=== PATIENT | female | born 1990 | race Caucasian/White ===

== ENCOUNTER 2016-04-26 10:30 | Emergency (ER) | payer MEDICAID ==
[2016-04-26 10:42] VITALS: BP 113/63; PULSE 94; RESP 16; TEMP 98.4; O2SAT 97
--- NOTE | 2016-04-26 11:23 | UCPHY ---
H & P Time Seen by Provider: 04/26/16 10:55 Patient Type: Established HPI/ROS: This patient complains of right wrist pain of 4 days duration is been increasing in intensity. 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 Rather, the pain came on gradually. She had a similar episode a few years back and saw a chiropractor who put a carpal bone back in place. She said thereafter she felt improved. This time the chiropractor did not think he can be of assistance and she came here for further evaluation. She states the pain is mild at baseline moderate with flexion of her wrist. She notes no other associated symptoms. ROS: Musculoskeletal: No swelling or discoloration to the wrist. Neuro: No numbness or weakness. No tingling up the arm. 5 point ROS is otherwise negative. 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 General: No acute distress Eyes: Pupils equal and react to light. Extraocular motions are intact. Lungs: No respiratory distress. Cardiac: Brisk capillary refill is intact throughout. Pulses are 2+ and symmetric in the affected extremity. Skin: No rash or pallor. Extremities: Atraumatic and normal except for right wrist Right wrist: Patient has mild to moderate tenderness to the dorsum of the wrist without swelling. She maintains good range of motion. Phalen's test is negative. Tinel's test is negative. There is no anatomical snuffbox tenderness or volar tenderness. No forearm tenderness. Neuro: Alert and oriented x3 with no sensorimotor deficits. Initial differential diagnosis: Wrist strain or occult sprain, prior injury with exacerbation, rule out bony abnormality Constitutional: Initial Vital Signs Temperature (C) 36.9 C 04/26/16 10:40 Heart Rate 94 04/26/16 10:40 Respiratory Rate 16 04/26/16 10:40 Blood Pressure 113/63 04/26/16 10:40 O2 Sat (%) 97 04/26/16 10:40 O2 Delivery Mode Room Air Allergies/Adverse Reactions: No Known Allergies Allergy (Verified 04/26/16 10:39) Home Medications: Medication Instructions Recorded NK [No Known Home Meds] 06/14/14 MDM/Departure - MDM Diagnostics: Wrist x-ray was read by the radiologist and reviewed by myself with scapholunate dissociation. Otherwise normal ED Course/Re-evaluation: Discussion: This patient may have had a prior wrist injury with ligament disruption causing the scapholunate dissociation. I counseled regarding this. No fracture or other bony abnormalities and no remarkable findings on exam other than the mild tenderness. She is placed in a Velcro wrist splint by our tech. She will take NSAIDs due gentle stretches, rest and splint with plan to follow up with hand surgeon for any ongoing symptoms despite the treatment plan - Depart Disposition: Home, Routine, Self-Care Clinical Impression: Wrist pain, acute Qualifiers: Laterality: right Qualified Code(s): M25.531 - Pain in right wrist Condition: Good Instructions: Wrist Sprain (ED) Additional Instructions: Diagnosis: Wrist pain Your x-ray as a finding that usually occurs from a wrist sprain-to the bones further part than usual. Plan: Wear the Velcro wrist splint whenever your active Ibuprofen for discomfort or similar anti-inflammatory Call Dr. haines-orthopedic surgeon to arrange follow-up appointment for further evaluation. Stand Alone Forms: Work Excuse Referrals: NONE *PRIMARY CARE P,. [Primary Care Provider] - As per Instructions Zion Haines MD [Medical Doctor] - As per Instructions - PQRS PQRS Measurement: NA
== END 2016-04-26 11:39 | disposition home or self-care (01) ==
LOC: CED 10:30
DX: M25.531 Pain in right wrist (principal); F17.200 Nicotine dependence, unspecified, uncomplicated
CPT/HCPCS: 73110-PO; 99214-PO; G0463-PO; L3908

== ENCOUNTER 2016-05-22 09:35 | Emergency (ER) | payer MEDICAID ==
[2016-05-22] MEDS ORDERED: NS 1,000 ML IV ONE (09:53)
--- NOTE | 2016-05-22 09:57 | EDPHY ---
H & P Time Seen by Provider: 05/22/16 09:41 HPI/ROS: CHIEF COMPLAINT: Right-sided abdominal pain HISTORY OF PRESENT ILLNESS: Patient started her menstrual period a week ago and started having right-sided abdominal pain this week on Monday. She describes it from her ribs to her hip bone on the right side which was better in the morning and then worse in the evening. Not associated with change when she eats or drinks anything. No vomiting or diarrhea. No urinary symptoms. No vaginal discharge. No history of fall injury or trauma. Last night it was worse and located in the right side of her abdomen. Radiated both up to her ribs and down toward her pelvis. Not better worse with position. A little bit worse with a deep breath. REVIEW OF SYSTEMS: Eye: no change in vision ENT: Mild sore throat Cardiac: no chest pain or syncope Pulmonary: no cough or SOB Abdomen: HPI Musculoskeletal: no back pain or leg pain or leg swelling Skin: no rash Neuro: no headache Constitutional: no fever : no urinary symptoms A comprehensive 10 point review of systems is otherwise negative aside from elements mentioned in the history of present illness. PAST MEDICAL HISTORY: Tonsillectomy. No history of PE or DVT. No medications. Social history: Smoker, alcohol last night but not daily. No recent travel or immobilization or surgery. No family history of venous thromboembolism. General Appearance: Alert and conversant, cooperative. Eyes: No scleral icterus. ENT, Mouth: Normal mucous membranes. No pharyngeal erythema or exudate, no trismus. Respiratory: Normal respiratory effort, breath sounds equal, lungs are clear to auscultation. Full sentences. Cardiovascular: Regular rate and rhythm. Gastrointestinal: No Thomason sign. Mild right lower abdominal tenderness without rebound or guarding. Bowel sounds present. No hernia. Neurological: Alert and oriented x3. Normally conversant. Face symmetric, normal movement and sensation in all extremities. Skin: Warm and dry, no rashes. Musculoskeletal: No peripheral edema and no joint swelling. No calf tenderness or swelling. Psychiatric: Not agitated. Emergency Department course/MDM: Patient declined pain medication. IV normal saline ordered because she has an empty bladder and urine sample requested, would like to keep her NPO until evaluation is complete. CBC, chemistry, lipase and LFTs, ultrasound of the right lower quadrant. Lack of right upper quadrant tenderness and no change with oral intake, if liver function tests are normal I think gallstones are less likely. PERC negative, very low suspicion for pulmonary embolism. 1150: Results discussed in detail with the patient, most likely ruptured ovarian cyst, declined pain medication on discharge. Smoking Status: Current every day smoker Constitutional: Initial Vital Signs Temperature (C) 36.7 C 05/22/16 09:37 Heart Rate 89 05/22/16 09:37 Respiratory Rate 18 05/22/16 09:37 Blood Pressure 119/85 H 05/22/16 09:37 O2 Sat (%) 95 05/22/16 09:37 O2 Delivery Mode Room Air Allergies/Adverse Reactions: No Known Allergies Allergy (Verified 05/22/16 09:37) Home Medications: Medication Instructions Recorded NK [No Known Home Meds] 06/14/14 Medical Decision Making - Diagnostics Imaging: Ultrasound at 11:[address] Herr shows a appendix not visualized but otherwise normal right lower quadrant, multiple follicular cysts in the right ovary with small free fluid in the pelvis suggesting recent ovarian cyst rupture, otherwise negative. Differential Diagnosis: Differential considered including but not limited to appendicitis, ovarian cyst or torsion, cholecystitis or cholelithiasis, pancreatitis, renal colic - Data Points Laboratory Results: Laboratory Results 05/22/16 10:05 05/22/16 10:05 05/22/16 05/22/16 05/22/16 10:59 10:05 10:05 WBC RBC Hgb Hct MCV MCH MCHC RDW Plt Count MPV Neut % (Auto) Lymph % (Auto) [place] % (Auto) Eos % (Auto) Baso % (Auto) Nucleat RBC Rel Count Absolute Neuts (auto) Absolute Lymphs (auto) Absolute Monos (auto) Absolute Eos (auto) Absolute Basos (auto) Absolute Nucleated RBC Immature Gran % Immature Gran # Sodium 142 mEq/L mEq/L (134-144) Potassium 4.0 mEq/L mEq/L (3.5-5.2) Chloride 106 mEq/L mEq/L (97-110) Carbon Dioxide 25 mEq/l mEq/l (22-31) Anion Gap 11 mEq/L mEq/L (8-16) BUN 10 mg/dL mg/dL (7-23) Creatinine 0.7 mg/dL mg/dL (0.6-1.0) Estimated GFR > 60 Glucose 97 mg/dL mg/dL (70-100) Calcium 9.5 mg/dL mg/dL (8.5-10.4) Total Bilirubin 0.8 mg/dL mg/dL (0.1-1.4) Conjugated Bilirubin 0.3 mg/dL mg/dL (0.0-0.5) Unconjugated Bilirubin 0.5 mg/dL mg/dL (0.0-1.1) AST 23 IU/L IU/L (14-46) ALT 37 IU/L IU/L (9-52) Alkaline Phosphatase 98 IU/L IU/L (38-126) Total Protein 7.3 g/dL g/dL (6.3-8.2) Albumin 4.4 g/dL g/dL (3.5-5.0) Lipase 75.0 IU/L IU/L (23-300) Beta HCG, Qual NEGATIVE Urine Color YELLOW Urine Appearance CLEAR Urine pH 8.0 H (5.0-7.5) Ur Specific [place] 1.008 (1.002-1.030) Urine Protein NEGATIVE (NEGATIVE) Urine Ketones NEGATIVE (NEGATIVE) Urine Blood NEGATIVE (NEGATIVE) Urine Nitrate NEGATIVE (NEGATIVE) Urine Bilirubin NEGATIVE (NEGATIVE) Urine Urobilinogen NEGATIVE EU EU (0.2-1.0) Ur Leukocyte Esterase NEGATIVE (NEGATIVE) Urine Glucose NEGATIVE (NEGATIVE) 05/22/16 10:05 WBC 11.02 10^3/uL H 10^3/uL (3.80-9.50) RBC 4.64 10^6/uL 10^6/uL (4.18-5.33) Hgb 15.0 g/dL g/dL (12.6-16.3) Hct 42.9 % % (38.0-47.0) MCV 92.5 fL fL (81.5-99.8) MCH 32.3 pg pg (27.9-34.1) MCHC 35.0 g/dL g/dL (32.4-36.7) RDW 12.0 % % (11.5-15.2) Plt Count 182 10^3/uL 10^3/uL (150-400) MPV 10.9 fL fL (8.7-11.7) Neut % (Auto) 77.5 % H % (39.3-74.2) Lymph % (Auto) 13.6 % L % (15.0-45.0) [place] % (Auto) 7.4 % % (4.5-13.0) Eos % (Auto) 0.8 % % (0.6-7.6) Baso % (Auto) 0.2 % L % (0.3-1.7) Nucleat RBC Rel Count 0.0 % % (0.0-0.2) Absolute Neuts (auto) 8.54 10^3/uL H 10^3/uL (1.70-6.50) Absolute Lymphs (auto) 1.50 10^3/uL 10^3/uL (1.00-3.00) Absolute Monos (auto) 0.82 10^3/uL H 10^3/uL (0.30-0.80) Absolute Eos (auto) 0.09 10^3/uL 10^3/uL (0.03-0.40) Absolute Basos (auto) 0.02 10^3/uL 10^3/uL (0.02-0.10) Absolute Nucleated RBC 0.00 10^3/uL 10^3/uL (0-0.01) Immature Gran % 0.5 % % (0.0-1.1) Immature Gran # 0.05 10^3/uL 10^3/uL (0.00-0.10) Sodium Potassium Chloride Carbon Dioxide Anion Gap BUN Creatinine Estimated GFR Glucose Calcium Total Bilirubin Conjugated Bilirubin Unconjugated Bilirubin AST ALT Alkaline Phosphatase Total Protein Albumin Lipase Beta HCG, Qual Urine Color Urine Appearance Urine pH Ur Specific [place] Urine Protein Urine Ketones Urine Blood Urine Nitrate Urine Bilirubin Urine Urobilinogen Ur Leukocyte Esterase Urine Glucose Medications Given: Discontinued Medications Sodium Chloride (Ns) 1,000 mls @ 0 mls/hr IV ONCE ONE PRN Reason: Wide Open Stop: 05/22/16 09:54 Last Admin: 05/22/16 10:08 Dose: 1,000 mls Departure - Departure Disposition: Home, Routine, Self-Care Clinical Impression: Ovarian cyst Qualifiers: Laterality: right Qualified Code(s): N83.201 - Unspecified ovarian cyst, right side Condition: Good Instructions: Ovarian Cyst (ED) Additional Instructions: Oral ibuprofen 600 mg every 6-8 hours for the next 72 hours. Please return for re-evaluation if you get fever, vomiting, worsening or severe pain. Referrals: Natalie Issa, [Doctor of Osteopathy] - 2-3 days, if not improved
[2016-05-22 10:17] LABS: % IMMATURE GRANULYOCYTES 0.5 % (0.0-1.1); ABSOLUTE IMMATURE GRANULOCYTES 0.05 10^3/uL (0.00-0.10); ADD DIFF? NO; ADD MORPH? NO; ADD SCAN? NO; ATYPICAL LYMPHOCYTE FLAG 0 (0-99); FRAGMENT RBC FLAG 0 (0-99); HEMATOCRIT 42.9 % (38.0-47.0); LEFT SHIFT FLG 0 (0-99); LIPEMIA HEMOLYSIS FLAG 90 (0-99); MEAN CELL HEMOGLOBIN 32.3 pg (27.9-34.1); MEAN CELL VOLUME 92.5 fL (81.5-99.8); MEAN PLATELET VOLUME 10.9 fL (8.7-11.7); PLATELET CLUMPS FLAG 30 (0-99); PLATELET COUNT 182 10^3/uL (150-400); RED BLOOD CELL COUNT 4.64 10^6/uL (4.18-5.33)
[2016-05-22 10:32] LABS: ALANINE AMINOTRANSFERASE 37 IU/L (9-52); ALBUMIN 4.4 g/dL (3.5-5.0); ALKALINE PHOSPHATASE 98 IU/L (38-126); ANION GAP 11 mEq/L (8-16); ASPARTATE AMINOTRANSFERASE 23 IU/L (14-46); BILIRUBIN,TOTAL 0.8 mg/dL (0.1-1.4); BILIRUBIN-CONJUGATED 0.3 mg/dL (0.0-0.5); BILIRUBIN-UNCONJUGATED 0.5 mg/dL (0.0-1.1); CALCIUM 9.5 mg/dL (8.5-10.4); CARBON DIOXIDE 25 mEq/l (22-31); CHLORIDE 106 mEq/L (97-110); CREATININE 0.7 mg/dL (0.6-1.0); GLOMERULAR FILTRATION RATE > 60; GLUCOSE 97 mg/dL (70-100); SODIUM 142 mEq/L (134-144); TOTAL PROTEIN 7.3 g/dL (6.3-8.2)
[2016-05-22 11:08] LABS: COLOR YELLOW; LEUKOCYTE ESTERASE,URINE NEGATIVE (NEGATIVE); NITRITE,URINE NEGATIVE (NEGATIVE)
[2016-05-22 11:29] VITALS: RESP 16
[2016-05-22 12:08] VITALS: BP 102/70; PULSE 68; TEMP 96.8; O2SAT 98
== END 2016-05-22 12:08 | disposition home or self-care (01) ==
DX: N83.201 Unspecified ovarian cyst, right side (principal); F17.200 Nicotine dependence, unspecified, uncomplicated

== ENCOUNTER 2016-08-16 16:34 | Emergency (ER) | payer OTHER, MEDICAID ==
[2016-08-16 16:44] VITALS: BP 102/72; PULSE 100; RESP 18; TEMP 98.8; O2SAT 95
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
[2016-08-16] MEDS ORDERED: IBUPROFEN 600 MG TAB PO ONE (16:56)
== END 2016-08-16 17:14 | disposition home or self-care (01) ==
LOC: CED 16:34
DX: S63.501A Unspecified sprain of right wrist, initial encounter (principal); F17.200 Nicotine dependence, unspecified, uncomplicated; X50.0XXA Overexertion from strenuous movement or load, initial encounter; Y92.69 Other specified industrial and construction area as the place of occurrence of the external cause; Y99.0 Civilian activity done for income or pay; Y93.89 Activity, other specified
CPT/HCPCS: 73110-PO; L3908

== ENCOUNTER 2017-01-18 08:56 | Emergency (ER) | payer MEDICAID ==
[2017-01-18 09:11] VITALS: PULSE 93; RESP 16; TEMP 98.2; O2SAT 97
[2017-01-18] MEDS ORDERED: IBUPROFEN 600 MG TAB PO ONE ×2 (09:12)
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
[2017-01-18 09:32] VITALS: BP 124/78
== END 2017-01-18 09:34 | disposition home or self-care (01) ==
LOC: CED 08:56
DX: S16.1XXA Strain of muscle, fascia and tendon at neck level, initial encounter (principal); F17.200 Nicotine dependence, unspecified, uncomplicated; V49.50XA Passenger injured in collision with unspecified motor vehicles in traffic accident, initial encounter; Y92.410 Unspecified street and highway as the place of occurrence of the external cause

== ENCOUNTER 2017-08-15 20:02 | Emergency (ER) | payer MEDICAID ==
--- NOTE | 2017-08-15 20:33 | EDPHY ---
H & P Smoking Status: Current every day smoker Time Seen by Provider: 08/15/17 20:15 HPI/ROS: CHIEF COMPLAINT: Abdominal pain HISTORY OF PRESENT ILLNESS: 27-year-old female with a history of ovarian cysts here with right-sided abdominal pain for the last 24 hr. She reports similar pain previously with ovarian cyst. She denies any fevers, chills, vomiting, diarrhea, dysuria. Addition she denies , vaginal discharge, history of STDs. She reports normal appetite but does feel nauseous today. She has no surgical history of the abdomen. REVIEW OF SYSTEMS: Constitutional: No fever, no chills. Eyes: No discharge. ENT: No sore throat. Cardiovascular: No chest pain, no palpitations. Respiratory: No cough, no shortness of breath. Gastrointestinal: + abdominal pain, no vomiting. Genitourinary: No hematuria. Musculoskeletal: No back pain. Skin: No rashes. Neurological: No headache. (Goyo Macias) Past Medical/Surgical History: Ovarian cyst (Shruthi Steen) Social History: no recent alcohol (Shruthi Steen) Physical Exam: General Appearance: Alert and no distress. Eyes: Pupils equal and round no injection. Respiratory: Chest is nontender, lungs are clear to auscultation. Cardiac: regular rate and rhythm. Gastrointestinal: Abdomen is soft and mild tenderness with no peritoneal signs to right lower quadrant and right adnexa, no masses, bowel sounds normal. Musculoskeletal: Neck is supple and nontender. Extremities have full range of motion and are nontender. Skin: No rashes or lesions. (Goyo Macias) Constitutional: Initial Vital Signs Temperature (C) 36.9 C 08/15/17 20:05 Heart Rate 85 08/15/17 20:05 Respiratory Rate 20 08/15/17 20:05 Blood Pressure 124/73 H 08/15/17 20:05 O2 Sat (%) 97 08/15/17 20:05 O2 Delivery Mode Room Air Allergies/Adverse Reactions: beeswax Allergy (Verified 08/15/17 20:08) bees Allergy (Uncoded 08/15/17 20:08) Home Medications: Medication Instructions Recorded NK [No Known Home Meds] 06/14/14 Medical Decision Making ED Course/Re-evaluation: I saw and examined this patient. On exam, abdomen is soft, suprapubic and right pelvic tenderness, no peritoneal signs. I agree with the initial assessment and plan. (Shruthi Steen) Differential Diagnosis: Appendicitis, cholecystitis, UTI, pyelonephritis, tubo-ovarian abscess, ovarian cyst, (Goyo Macias) Other Provider: I assumed care of this patient at 9:30 p.m.. I reviewed the results of the ultrasound and relayed them to the patient. She continues to decline pain medication. On examination her abdomen is soft and nontender. She is comfortable returning home. She does not have a local physician and I am giving her a referral to the OBGYN accessioner. (Analilia Cramer) - Data Points Laboratory Results: Laboratory Results 08/15/17 20:30 08/15/17 20:30 Departure - Departure Disposition: Home, Routine, Self-Care Clinical Impression: Abdominal pain Condition: Good Instructions: Pelvic Pain in Women (ED) Additional Instructions: Ibuprofen 600 mg 3 times daily while the pain persists. Referrals: Luz De Los Santos DO [Doctor of Osteopathy] - As per Instructions
[2017-08-15 20:56] LABS: PLATELET COUNT 193 10^3/uL (150-400)
[2017-08-15 22:24] VITALS: BP 103/73
== END 2017-08-15 22:24 | disposition home or self-care (01) ==
DX: R10.31 Right lower quadrant pain (principal); F17.200 Nicotine dependence, unspecified, uncomplicated

== ENCOUNTER 2018-01-28 12:39 | Emergency (ER) | payer MEDICAID ==
[2018-01-28 12:49] VITALS: BP 120/78
--- NOTE | 2018-01-28 12:58 | EDPHY ---
H & P Stated Complaint: right wrist pain sp splitting firewood, monday . hx of same Time Seen by Provider: 01/28/18 12:47 HPI/ROS: Chief Complaint: Wrist pain HPI: 27-year-old presenting with pain in her right wrist and forearm worsening for the last 2 days. Patient states this started when she was chopping firewood for 2 hr on Monday. 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 She had a similar injury in the past was told that she had a stress fracture in her wrist. She has not had any direct blows or injuries. No falls. ROS: 10 systems were reviewed and were negative except those elements noted in the HPI. PMH: Denies Social History: No smoking, no alcohol, no recreational drug use Family History: non-contributory Physical Exam: General: Awake, alert, no acute distress Right elbow: Nontender, full range of motion without pain. Right wrist: Patient has no bony tenderness. She is complaining of some discomfort in her right flexors on the ulnar aspect of her wrist but no point tenderness. She is able to flex with normal strength. Sensations intact in the radial, median, and ulnar nerve distribution. She has some discomfort with supination. Capillary refills less than 2 sec. Normal radial and ulnar pulses. Hand, no tenderness. Skin: No rash - Personal History LMP (Females 10-55): 22-28 Days Ago Current Tetanus/Diphtheria Vaccine: Unsure Current Tetanus Diphtheria and Acellular Pertussis (TDAP): Unsure - Medical/Surgical History Hx Asthma: No Hx Chronic Respiratory Disease: No Hx Diabetes: No Hx Cardiac Disease: No Hx Renal Disease: No Hx Cirrhosis: No Hx Alcoholism: No Hx HIV/AIDS: No Hx Splenectomy or Spleen Trauma: No Other PMH: ovarian cyst - Social History Smoking Status: Heavy smoker Constitutional: Initial Vital Signs Temperature (C) 37.1 C 01/28/18 12:43 Heart Rate 87 01/28/18 12:43 Respiratory Rate 16 01/28/18 12:43 Blood Pressure 120/78 01/28/18 12:43 O2 Sat (%) 93 01/28/18 12:43 Allergies/Adverse Reactions: bees Allergy (Uncoded 01/28/18 12:49) Home Medications: Medication Instructions Recorded NK [No Known Home Meds] 06/14/14 Medical Decision Making - Diagnostics Imaging Results: Imaging Impressions Wrist X-Ray 01/28/18 12:50 Impression: Negative. No acute fracture. ED Course/Re-evaluation: 27-year-old with wrist pain consistent with his tendinitis. X-rays negative. Will discharge with supportive therapy and outpatient follow-up. Departure - Departure Disposition: Home, Routine, Self-Care Clinical Impression: Tendinitis Condition: Good Instructions: Tendinitis (ED) Additional Instructions: Take ibuprofen, 600 mg every 8 hr. You may alternate with acetaminophen, 1000 mg every 8 hr. May apply ice for 15 min of every hour while awake. You may wear the splint as needed for comfort. Follow up with primary care physician in 3-4 days for further evaluation. Referrals: Drew Deutsch MD [[facility] [place] Provider] - As per Instructions
== END 2018-01-28 14:05 | disposition home or self-care (01) ==
LOC: CED 12:39
DX: M77.8 Other enthesopathies, not elsewhere classified (principal)
CPT/HCPCS: 73110-PO; L3908

== ENCOUNTER 2018-05-19 17:45 | Emergency (ER) | payer MEDICAID ==
[2018-05-19 17:51] VITALS: BP 129/81
--- NOTE | 2018-05-19 18:15 | EDPHY ---
H & P Stated Complaint: snowboarding fall, helmeted, -loc Time Seen by Provider: 05/19/18 17:56 HPI/ROS: Chief complaint: Head injury History of present illness: This is an otherwise healthy 27-year-old female who presents to the emergency department for head injury. [place] a [place] approximately 1-2 body heights high and landed in the snow. She landed hard and struck her head. She did not lose consciousness but felt dazed. She did become nauseous. Since then she has developed a headache on both sides of her head. She has persistent nausea but no vomiting. She also reports neck discomfort. She was helmeted. Again no loss of consciousness. She denies trauma to the rest of the body including the back, chest, abdomen, pelvis or extremities. No paresthesias. No weakness or paralysis. No bowel or bladder dysfunction. Review of systems: A 10 point review of systems was obtained and other than described above was negative. - Personal History LMP (Females 10-55): 8-14 Days Ago Current Tetanus/Diphtheria Vaccine: Unsure Current Tetanus Diphtheria and Acellular Pertussis (TDAP): Unsure - Medical/Surgical History Hx Asthma: No Hx Chronic Respiratory Disease: No Hx Diabetes: No Hx Cardiac Disease: No Hx Renal Disease: No Hx Cirrhosis: No Hx Alcoholism: No Hx HIV/AIDS: No Hx Splenectomy or Spleen Trauma: No Other PMH: ovarian cyst, - Social History Smoking Status: Heavy smoker - Physical Exam Exam: General Appearance: Alert, nontoxic Eyes: PERRLA. EOM intact. No raccoon eyes. ENT: No hemotympanum, no chavez sign. Respiratory: Lungs clear to auscultation bilaterally. Cardiac: Regular rate and rhythm. Neurological: Alert and oriented x4. Cranial nerves 2-12 grossly intact. Strength and sensation intact and symmetrical. Skin: No lesions consistent with trauma. Musculoskeletal: The head is nontender without crepitus or bony deformity. There is tenderness to the upper cervical spine at the level of C1 through C3 both along the paraspinal muscles bilaterally and midline. The rest of the spine is nontender without crepitus or bony deformity. She is moving all extremities without difficulty. No difficulty ambulating. Constitutional: Initial Vital Signs Temperature (C) 36.7 C 05/19/18 17:48 Heart Rate 112 H 05/19/18 17:48 Respiratory Rate 16 05/19/18 17:48 Blood Pressure 129/81 H 05/19/18 17:48 O2 Sat (%) 97 05/19/18 17:48 O2 Delivery Mode Room Air Allergies/Adverse Reactions: bees Allergy (Uncoded 05/19/18 17:48) Home Medications: Medication Instructions Recorded NK [No Known Home Meds] 06/14/14 Medical Decision Making - Diagnostics Imaging Results: Imaging Impressions Cervical Spine CT 05/19/18 18:06 Impression: 1. No acute osseous abnormality seen associated with the cervical spine. 2. Reversal the normal lordosis of the mid cervical spine. This is nonspecific but can be seen with muscle spasm. 3. Disk bulges suspected lower cervical spine that along with congenitally narrowed canal contributes to spinal stenosis. 4. Paranasal sinus disease. Findings discussed with JOHNNY Haynes at 18:50 hour, 05/19/2018. Imaging: Discussed imaging studies w/ helper maintenance cleaning Radiologist ED Course/Re-evaluation: Patient seen under the supervision of my secondary supervising physician Dr. Brant Birch. Patient presents to the emergency department for head and neck injury. By history and physical exam I believe she is suffering from a concussion with postconcussive syndrome. I do not believe imaging studies of the brain are indicated at this time. She does have midline spine pain although no neurologic deficits. I am unable to clinically clear her C-spine and therefore CT scan is obtained. It is negative for bony injury. I believe she is safe for discharge home. Home care is discussed. She is to follow up with primary care doctor or the concussion Clinic for further evaluation and care. Return precautions are given. The patient voiced understanding and agreement with plan. Differential Diagnosis: Included but not limited to concussion, post concussive syndrome, cervical strain, bony fracture, doubtful intracranial bleed Departure - Departure Disposition: Home, Routine, Self-Care Clinical Impression: Post concussive syndrome Concussion Qualifiers: Encounter type: initial encounter Loss of consciousness presence/duration: without LOC Qualified Code(s): S06.0X0A - Concussion without loss of consciousness, initial encounter Cervical strain Qualifiers: Encounter type: initial encounter Qualified Code(s): S16.1XXA - Strain of muscle, fascia and tendon at neck level, initial encounter Condition: Good Instructions: Cervical Strain (ED), Concussion (ED), Post Concussion Syndrome ( ED) Additional Instructions: Follow-up with a primary care doctor this week for recheck Maintain rest as discussed avoiding stimulating situations such as phone use, computer use, loud music etc Use ibuprofen 600 mg 3 times a day for the next 2-3 days for pain control If this does not control the pain You can take 650 mg of Tylenol every 4-6 hours as well Ice the injured sites 20 min on, 3 times daily for the next 2 days, start applying heat 72 hr after the initial injury If symptoms worsen or new symptoms develop return to the emergency room for recheck Referrals: NONE *PRIMARY CARE P,. [Primary Care Provider] - As per Instructions [facility],. [Clinic] - As per Instructions
== END 2018-05-19 19:01 | disposition home or self-care (01) ==
DX: S06.0X0A Concussion without loss of consciousness, initial encounter (principal); S16.1XXA Strain of muscle, fascia and tendon at neck level, initial encounter; V00.311A Fall from snowboard, initial encounter; Y93.23 Activity, snow (alpine) (downhill) skiing, snowboarding, sledding, tobogganing and snow tubing; Y92.828 Other wilderness area as the place of occurrence of the external cause